=== PATIENT | female | born 1985 | race Caucasian/White ===

== ENCOUNTER 2019-05-28 16:01 | Outpatient (CLI) | payer OTHER ==
--- NOTE | 2019-05-28 17:00 | RAD ---
RADIOGRAPH BILATERAL SACROILIAC JOINTS THREE VIEWS: 05/28/19 HISTORY: 34-year-old female with sacroiliitis. FINDINGS: Bilateral Essure linear devices are present in the pelvis. Bilateral SI joint spaces are maintained. No evidence of erosions or large osteophytes. Minimal sclerosis. No ankylosis. There is fusion between dysplastic right transverse process of the lowest lumbar vertebra, with the r ight sacral ala. Limited visualization of bilateral hip joints demonstrate no obvious pathology. IMPRESSION: 1. No compelling evidence of sacroiliitis. 2. Lumbosacral transitional vertebra, type IIIa. 3. Bilateral fallopian tube closure devices. POS: [facility]
== END 2019-05-28 16:02 | disposition home or self-care (01) ==
LOC: RAD 16:01
PROVIDERS: ATTEND Internal Medicine Rheumatology
DX: M46.1 Sacroiliitis, not elsewhere classified (principal); Q76.49 Other congenital malformations of spine, not associated with scoliosis; Z97.5 Presence of (intrauterine) contraceptive device
CPT/HCPCS: 72202

== ENCOUNTER 2020-04-24 05:49 | Emergency (ER) | payer OTHER ==
[2020-04-24] MEDS ORDERED: Ondansetron PF 4 MG/2 ML Vial ONE ×2 (06:04→07:47)
[2020-04-24] MEDS ORDERED: Ketorolac Tromethamine 30 MG/ML VIAL ONE (06:04)
[2020-04-24] MEDS ORDERED: Promethazine HCl 25 MG/ML VIAL ONE (07:47)
== END 2020-04-24 08:45 | disposition home or self-care (01) ==
LOC: ERS 05:49
DX: R11.2 Nausea with vomiting, unspecified (principal); E86.0 Dehydration; L40.50 Arthropathic psoriasis, unspecified; F32.9 Major depressive disorder, single episode, unspecified; Z79.899 Other long term (current) drug therapy
CPT/HCPCS: 96374; 96375; 96376; J0500; J1885; J2405; J2550